=== PATIENT | male | born 1965 ===

== ENCOUNTER 2017-09-13 05:10 | Day surgery (SDC) | payer OTHER ==
[2017-09-13] VITALS (12 sets, daily range): BP systolic 129–144; BP diastolic 68–94
[~2017-09-13] VITALS: Ht 193 cm; Wt 111.1 kg
[2017-09-13] MEDS ORDERED: FISH OIL 1,2001 EAC3 PO (05:49)
[2017-09-13] MEDS ORDERED: VITAMIN D1000 UNI1 ORAL (05:49)
[2017-09-13] MEDS ORDERED: PAXIL20 MG ORAL (05:49)
[2017-09-13] MEDS ORDERED: ASPIRIN81 MG ORAL (05:49)
[2017-09-13] MEDS ORDERED: CRESTOR10 M2 ORAL (05:49)
[2017-09-13] MEDS ORDERED: ALLEGRA ALLERGY60 M1 PO (05:49)
[2017-09-13] MEDS ORDERED: TRUVADA 200 MG1 EAC1 ORAL (05:49)
[2017-09-13] MEDS ORDERED: NORVIR100 MG ORAL (05:49)
[2017-09-13] MEDS ORDERED: REYATAZ300 MG ORAL (05:49)
[2017-09-13] MEDS ORDERED: ceFAZolin 1gm in D5W 55ml IVPB ONE (06:00)
[2017-09-13] MEDS ORDERED: celeBREX 200mg Cap **SURGERY PATIENTS ONLY ORAL ONE ×2 (06:00→06:04)
[2017-09-13] MEDS ORDERED: oxyCONTIN 20mg tab ORAL ONE (06:00)
--- NOTE | 2017-09-13 07:05 | Anethesia Preoperative Eval ---
Anesthesia Pre-op PMH/ROS General Date of Evaluation: Sep 13, 2017 Anesthesiologist: Mendel ASA Score: ASA 2 Mallampati Score Class I : Soft palate, uvula, fauces, pillars visible Class II: Soft palate, uvula, fauces visible Class III: Soft palate, base of uvula visible Class IV: Only hard plate visible Mallampati Classification: Class III Surgeon: Jacob Diagnosis: Right knee meniscal tear Surgical Procedure: Right knee arthroscopy Anesthesia History: none Family History: no anesthesia problems Allergies: Coded Allergies: No Known Allergies (Unverified , 09/12/17) Medications: see eMAR Past Medical History Cardiovascular: Reports: HTN, other - HLD, Denies: CAD, [place], valve dz, arrhythmia Pulmonary: Denies: asthma, COPD, BRITANY, other Gastrointestinal/Genitourinary: Denies: GERD, CRI, ESRD, other Neurologic/Psychiatric: Denies: dementia, CVA, depression/anxiety, TIA, other Endocrine: Denies: DM, hypothyroidism, steroids, other HEENT: Denies: cataract (L), cataract (R), glaucoma, [place] (L), [place] (R), other Hematology/Immune: Reports: other - HIV, Denies: anemia, DVT, bleeding disorder Musculoskeletal/Integumentary: Denies: OA, RA, DJD, DDD, edema, other Other: obesity PSxH Narrative: partial colon ressesctio Anesthesia Pre-op Phys. Exam Physician Exam Last Vital Signs Date Time Temp Pulse Resp B/P (MAP) Pulse Ox O2 Delivery O2 Flow Rate FiO2 09/13/17 05:43 98.3 72 18 144/94 96 Room Air 98.3 Constitutional: NAD Cardiovascular: RRR Respiratory: CTA Airway Exam Mallampati Score: Class II MO: limited ROM: limited Anesthesia Pre-op A/P Labs see chart Studies Pre-op Studies: EKG - sr Risk Assessment & Plan Assessment: ASA II Plan: GA Status Change Before Surgery: No Pre-Antibiotics Drug: Ancef 2g Given Within 1 Hr of Incision: KIMBER Barker M.D. Sep 13, 2017 07:05
[2017-09-13] MEDS ORDERED: LR 1000ml 1,000 ML IVLG SCH (07:19)
[2017-09-13] MEDS ORDERED: Bupivacaine 0.25% Inj 30ml INJ ONE (07:30)
[2017-09-13] MEDS ORDERED: Kenalog-40 1ml Vial ONE (07:30)
[2017-09-13] MEDS ORDERED: DiphenhydrAMINE 50mg/ml Inj IVP PRN (07:30)
[2017-09-13] MEDS ORDERED: Hydromorphone 0.5mg/0.5ml inj IVP PRN (07:30)
[2017-09-13] MEDS ORDERED: Midazolam 2mg/2ml Inj IVP PRN (07:30)
[2017-09-13] MEDS ORDERED: fentaNYL 100 mcg/2 mL IV PRN (07:30)
[2017-09-13] MEDS ORDERED: Duramorph PF 10mg/10ml amp IV ONE (07:30)
[2017-09-13] MEDS ORDERED: Morphine Sulfate PF 10 ML ONE (07:30)
[2017-09-13] MEDS ORDERED: Lidocaine 1% 10mg/ml/Epi 0.005mg/ml 30ml vial INJ ONE (07:31)
[2017-09-13] MEDS ORDERED: Ketorolac 30mg Inj ONE (07:31)
[2017-09-13] MEDS ORDERED: EPINEPHrine 1mg/1ml Amp ONE (07:31)
--- NOTE | 2017-09-13 07:56 | Operative Note - PDOC ---
Operative Note Operative Note Pre-op Diagnosis: right knee medial mensicus tear Procedure: right knee medial menisectomy Post-op Diagnosis: same as pre-op plus Operative Findings: consistent w/pre-op dx studies Anesthesia: MAC Specimen: none Complications: none Condition: stable Estimated Blood Loss: none Implant(s) used?: No GABRIEL TONY Sep 13, 2017 07:56
--- NOTE | 2017-09-13 07:56 | Pre-Procedure Note/Attestation ---
Pre-Procedure Note/Attestation Complete Prior to Procedure Planned Procedure: right Procedure Narrative: knee arthroscopy medial mensectomy Indications for Procedure Pre-Operative Diagnosis: right knee medial mensicus tear Attestation I attest that I discussed the nature of the procedure; its benefits; risks and complications; and alternatives (and the risks and benefits of such alternatives ), prior to the procedure, with the patient (or the patient's legal administrative representative). I attest that, if there was a reasonable possibility of needing a blood transfusion, the patient (or the patient's legal administrative representative) was given the [facility] standardized written summary, pursuant to the [place] Blood Safety Act ([place] Health and Safety Code # 1645, as amended). I attest that I re-evaluated the patient just prior to the surgery and that there has been no change in the patient's H&P, except as documented below: GABRIEL TONY Sep 13, 2017 07:55
[2017-09-13] MEDS ORDERED: Propofol 200mg/20ml IV ONE (08:00)
[2017-09-13] MEDS ORDERED: NS Irrig 1000ml ONE (08:00)
[2017-09-13] MEDS ORDERED: NS Irrig 4000ml IRRIG ONE (08:00)
[2017-09-13] MEDS ORDERED: Lidocaine 1% MPF 10mg/ml 5ml ONE (08:00)
[2017-09-13] MEDS ORDERED: LR 1000ml ONE (08:00)
[2017-09-13] MEDS ORDERED: Midazolam 2mg/2ml Inj ONE (08:00)
[2017-09-13] MEDS ORDERED: fentaNYL 100 mcg/2 mL IV ONE (08:00)
--- NOTE | 2017-09-13 08:07 | Immediate Post-Op Evaluation ---
Immediate Post-Op Evalulation Immediate Post-Op Evalulation Procedure: Right knee arthroscopy Date of Evaluation: Sep 13, 2017 Time of Evaluation: 08:59 IV Fluids: 800 Blood Products: 0 Estimated Blood Loss: min Urinary Output: 0 Blood Pressure Systolic: 132 Blood Pressure Diastolic: 94 Pulse Rate: 76 Respiratory Rate: 16 O2 Sat by Pulse Oximetry: 97 Temperature (Fahrenheit): 97.5 Pain Score (1-10): 0 Nausea: No Vomiting: No Complications 0 Patient Status: awake, reacts, patent, none Hydration Status: adequate Drug: Bassam 2g Given Within 1 Hr of Incision: Yes Time Given: 08:00 KIMBER RODRÍGUEZ M.D. Sep 13, 2017 08:07
--- NOTE | 2017-09-13 08:07 | 48 Hour Post Anesthesia Eval ---
Post Anesthesia Evaluation Procedure: Right knee arthroscopy Date of Evaluation: Sep 13, 2017 Time of Evaluation: 10:20 Blood Pressure Systolic: 143 0: 90 Pulse Rate: 69 Respiratory Rate: 18 Temperature (Fahrenheit): 97.5 O2 Sat by Pulse Oximetry: 96 Airway: patent Nausea: No Vomiting: No Pain Intensity: 0 Hydration Status: adequate Cardiopulmonary Status: at baseline Mental Status/LOC: patient returned to baseline Post-Anesthesia Complications: 0 Follow-up care needed: ready to discharge KIMBER RODRÍGUEZ M.D. Sep 13, 2017 08:07
[2017-09-13] MEDS ORDERED: Norco 5mg/325mg tab ORAL PRN (13:01)
[2017-09-13] MEDS ORDERED: HYDROmorphone 1mg/ml Carpuject SUBQ PRN (13:01)
[2017-09-13] MEDS ORDERED: Tylenol #3 tab (300mg/30mg) ORAL PRN (13:01)
[2017-09-13] MEDS ORDERED: D5 1/2NS 1,000 ML IV SCH (13:01)
--- NOTE | 2017-09-13 18:45 | Operative Note - Dictated ---
DATE OF OPERATION: 09/13/2017 PREOPERATIVE DIAGNOSIS: Right knee medial meniscus tear. POSTOPERATIVE DIAGNOSIS: 1. Right knee medial femoral condyle damage. 2. Hypertrophic synovial tissue medial and lateral patellofemoral compartment. 3. Grade 3/grade 4 patellofemoral chondral damage. PROCEDURES: 1. Right knee arthroscopic medial meniscectomy. 2. Synovectomy medial and lateral patellofemoral compartment. SURGEON: Krzysztof James M.D. ANESTHESIA: MAC. INDICATION FOR PROCEDURE: The patient is pleasant gentleman who has had localized medial-sided knee pain for over a year, failed conservative treatment. He had MRI, which showed possible meniscal tear. Given that he failed conservative treatment, he elected to undergo arthroscopic medial meniscectomy. Risks, limitations, expectations, and complications of procedure discussed in detail. All questions were addressed. DESCRIPTION OF PROCEDURE: An informed consent was obtained, the patient was brought to the operating room, was placed under monitored anesthesia control. Tourniquet was applied to the right proximal thigh. Right leg was prepped and draped in a sterile manner. Time-out was performed. Intraarticular injection containing 0.25% Marcaine plain was injected. Portal sites were injected 1% lidocaine with epinephrine. Inferolateral stab incision was then made. Trocar introduced in the knee joint. Systematic tour of the knee was performed. Medial gutter was free of any loose bodies. Medial compartment was entered. medial meniscus appeared to be intact. There was significant chondral damage in the posterior aspect of the medial femoral condyle. The entirety of the meniscus was probed given that the MRI did show a possible tear of the posterior horn medial meniscus but it was nice and stable. However, there was significant chondral flaps along the posterior medial femoral condyle. A gentle chondroplasty was performed. Once that was completed, intercondylar notch was entered. There was hypertrophic ligamentum mucosa, which was debrided and visualized the ACL and lateral compartment. ACL was probed, noted to be intact. Lateral compartment was entered free of any chondral damage. The meniscus appeared to be normal. The camera was repositioned in patellofemoral compartment, there was grade 3/grade 4 chondral damage of the patellofemoral compartment. Synovectomy was completed. Once that was done, the instruments were removed. Intraarticular injection containing 0.25% Marcaine with epinephrine with 20 mg of Kenalog 5 cc Duramorph, 0.25% Marcaine plain was injected. The patient was awoken and taken to recovery with stable vital signs. ESTIMATED BLOOD LOSS: None. COMPLICATIONS: None. SPECIMENS: None. IMPLANTS: None. Krzysztof James M.D. DR: BRAD JOB#: [id number] CC: BERT
== END 2017-09-13 10:40 | disposition home or self-care (01) ==
LOC: SUR 05:10
DX: M67.261 Synovial hypertrophy, not elsewhere classified, right lower leg (principal); M24.10 Other articular cartilage disorders, unspecified site; I10 Essential (primary) hypertension; E78.00 Pure hypercholesterolemia, unspecified; B20 Human immunodeficiency virus [HIV] disease; Z79.82 Long term (current) use of aspirin; E78.5 Hyperlipidemia, unspecified; Z90.49 Acquired absence of other specified parts of digestive tract
CPT/HCPCS: 29876; 97161; J1885; J2250; J2274; J2704; J3010; J3301; J3490; J7120; 94003; 94150